=== PATIENT | male | born 1985 | race Caucasian/White ===

== ENCOUNTER 2017-04-24 16:43 | Emergency (ER) | payer OTHER ==
[~2017-04-24] VITALS: Ht 188 cm; Wt 151.9 kg
[~2017-04-24 16:43] MED LIST: AMLODIPINE BESYL5 MG PO; LOSARTAN-HCTZ1 EAC1 PO
[2017-04-24] MEDS ORDERED: ZYRTEC10 MG PO (17:03)
[2017-04-24] MEDS ORDERED: PROTONIX40 MG PO (18:19)
[2017-04-24] MEDS ORDERED: ONDANSETRON ODT8 MG PO (18:19)
== END 2017-04-24 18:28 | disposition home or self-care (01) ==
LOC: ED 16:43
DX: R10.32 Left lower quadrant pain (principal); I10 Essential (primary) hypertension; Z79.899 Other long term (current) drug therapy; Z88.8 Allergy status to other drugs, medicaments and biological substances
CPT/HCPCS: 74177; 80053; 81001; 82150; 83690; 85025; 96361; 96374; 96375; 99284; J2405; J7030; Q9967

== ENCOUNTER 2018-05-09 13:14 | Day surgery (SDC) | payer OTHER ==
[~2018-05-09] VITALS: Ht 185.4 cm; Wt 147.4 kg
[~2018-05-09 13:14] MED LIST changes: +BUPROPION HCL150 MG PO; +CITALOPRAM HBR20 MG PO; +ONDANSETRON ODT8 MG PO; +PROTONIX40 MG PO; +ZYRTEC10 MG PO
--- NOTE | 2018-05-09 14:58 | NUR ---
05/09/18 1458 Carole Marquez 1448 PATIENT ARRIVES TO PACU AWAKE, ALERT AND ORIENTED X3. RESP EVEN AND UNLABORED, NC AT 2 LITERS. 1455 PATIENT ON ROOM AIR, SATS 94%. PATIENT DENIES PAIN OR NAUSEA, FAMILY AT BEDSIDE.
--- NOTE | 2018-05-11 10:03 | OR ---
[facility] [address], [place] [address] Signed DATE OF OPERATION: SURGEON: Brandie Mejia MD PREOPERATIVE DIAGNOSES: 1. Persistent diarrhea. 2. Known celiac disease by serologic testing. POSTOPERATIVE DIAGNOSES: 1. Chronic edema of duodenal segment including bulbar, 2nd and 3rd portions without sign of ulceration, but with friability. 2. Normal-appearing colon and rectum. PROCEDURES: 1. Esophagogastroduodenoscopy with biopsy. 2. Total colonoscopy to cecum. ANESTHESIA: Intravenous sedation, fentanyl 200 mcg, Versed 5 mg. 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 Floyd. He has had rather significant diarrhea problems. Serologic testing for celiac disease showed him to be markedly positive. A confirmatory biopsy was not obtained given the high level of serologic findings for celiac disease and he has been treated with a gluten free diet. I suspect he has not been able to maintain that diet very well, though he does make some effort to do so. He has persistent diarrhea not associated with bleeding. He has no family history of inflammatory bowel disease or colon cancer. He is admitted at this time to undergo colonoscopy on the basis of his diarrhea, but concurrently to undergo upper endoscopy to assess for activity of celiac disease and indeed to confirm its underlying presence. The risks of both procedures were reviewed including, but not limited to, bleeding, infection, and perforation. FINDINGS: On upper endoscopy, the 2nd and 3rd portions of the duodenum had edematous change. No serrated changes particularly and certainly no ulceration. The bulbar portion was edematous and friable. These areas were biopsied to confirm celiac disease. Stomach and esophagus showed mild inflammatory change, but not much and certainly there was no sign of large hiatal hernia, Goldman's epithelium, or other abnormality. CLOtest was negative at 15 minutes as well. Electronically Signed By: BRANDIE MEJIA MD 05/11/18 1003 PATIENT NAME: MARLON CASTELLANOS OPERATIVE REPORT DATE OF : 81 REPORT #: [id number] PHYSICIAN: BRANDIE MEJIA MD PCP: CLAYTON FLOYD MD REPORT IS CONFIDENTIAL AND NOT TO BE RELEASED WITHOUT AUTHORIZATION [facility] [address], [place] [address] Signed Colonoscopy showed a good prep and complete colonoscopy was undertaken of the cecum showing no sign of abnormality. There was no sign of diverticular formation, colitis, cancer, or polyps. DESCRIPTION OF PROCEDURE: The patient was brought to the endoscopy suite and placed in lateral decubitus position after undergoing topical Hurricaine spray hypopharyngeal anesthesia. A bite block was placed. The patient has a plethoric countenance and a thick caldera. After satisfactory sedation, a bite block was placed and an Olympus video upper endoscope passed in the hypopharynx. The vocal cords appeared normal. Scope was advanced to the esophagus throughout its length, it appeared normal. The scope was advanced to the stomach, which was insufflated with air. Rugal folds were normal. The pylorus was normal. Scope was passed through into the duodenum. The duodenum had a somewhat different appearance with a somewhat edematous and slightly whitish sclerotic appearance, but certainly no sign of serrated change or ulceration. Biopsies were taken of the 3rd and 2nd portions and the scope withdrawn to the bulbar portion, which did have some friability. This too was biopsied. There was no sign of ulceration. The scope was withdrawn to the antrum of the stomach where biopsies were taken for both CESAR and pathologic testing. Retroflexed view of the GE junction showed no sign of hiatal hernia. Scope was straightened withdrawn to the distal esophagus where biopsies were obtained though there was no evidence of Goldman's epithelium or other similar problem. Careful withdrawal of scope showed no other findings. Plans were then made for colonoscopy. Additional sedation was given and digital rectal examination performed, which was normal. An Olympus video colonoscope was passed in the rectum and manipulated throughout the colon ultimately intubating the cecum. Ileocecal valve and appendiceal orifice appeared normal. Irrigation was undertaken as needed. The scope was carefully withdrawn from that point and examination throughout showed no sign of polyps, diverticular formation, colitis, or cancer. Retroflex view of the rectum was normal as well. The scope was straightened, withdrawn and removed. The patient was taken to recovery room in good condition. CONCLUDING DIAGNOSIS: Diarrhea, which is problematic is more likely related to his underlying celiac disease with incomplete compliance to a gluten free diet than anything else. PLAN: Re-emphasised on the gluten free diet for now. Initiate colestipol 5 mg p.o. b.i.d. He Electronically Signed By: BRANDIE MEJIA MD 05/11/18 1003 PATIENT NAME: MARLON CASTELLANOS OPERATIVE REPORT DATE OF : 81 REPORT #: [id number] PHYSICIAN: BRANDIE MEJIA MD PCP: CLAYTON FLOYD MD REPORT IS CONFIDENTIAL AND NOT TO BE RELEASED WITHOUT AUTHORIZATION [address] [address] Signed will see us back in 4 weeks. We will review his pathology reports and his progress. MD BRIGID Rosales/MODL /[id number] cc: Clayton Floyd MD Copies: CLAYTON FLOYD MD ~ Electronically Signed By: BRANDIE MEJIA MD 05/11/18 1003 PATIENT NAME: MARLON CASTELLANOS TOMA OPERATIVE REPORT DATE OF : 81 REPORT #: [id number] PHYSICIAN: BRANDIE MEJIA MD PCP: CLAYTON FLOYD MD REPORT IS CONFIDENTIAL AND NOT TO BE RELEASED WITHOUT AUTHORIZATION
== END 2018-05-09 15:25 | disposition home or self-care (01) ==
LOC: OPS 13:14 → DS 13:14 → OPS 14:00 → DS 14:00 → OPS 15:25
PROVIDERS: Surgery
PROC: 0DB98ZX Excision of Duodenum, Via Natural or Artificial Opening Endoscopic, Diagnostic (ICD-10-PCS; principal; 2018-05-09 14:00)
PROC: 0DJD8ZZ Inspection of Lower Intestinal Tract, Via Natural or Artificial Opening Endoscopic (ICD-10-PCS; 2018-05-09 14:00)
DX: K63.89 Other specified diseases of intestine (principal); K31.89 Other diseases of stomach and duodenum; R19.7 Diarrhea, unspecified; K90.0 Celiac disease; I10 Essential (primary) hypertension; E66.01 Morbid (severe) obesity due to excess calories; Z68.42 Body mass index [BMI] 45.0-49.9, adult; Z83.79 Family history of other diseases of the digestive system
CPT/HCPCS: 99153; G0500; J2250; J3010; J7120